=== PATIENT | female | born 1930 | race Caucasian/White ===

== ENCOUNTER → 2016-02-17 | Outpatient (CLI) | payer OTHER, BC ==
[~2016-02-17] MED LIST: ASPI81TA28 PO; CALC1TAB10 PO; DONE5TAB9 PO; MULT-190 PO; OXYB3.9D TD; WARF3TAB PO
[2016-02-17 12:21] LABS: INR 1.4 (0.9-1.1); PROTHROMBIN TIME (PATIENT) 15.4 SECONDS (9.0-12.0)
== END | disposition home or self-care (01) ==
LOC: C.LABPVFM 10:02
PROVIDERS: ATTEND Internal Medicine
DX: I26.99 Other pulmonary embolism without acute cor pulmonale (principal)

== ENCOUNTER → 2016-04-06 | Outpatient (CLI) | payer OTHER, BC ==
[2016-04-06 10:55] LABS: INR 2.2 (0.9-1.1); PROTHROMBIN TIME (PATIENT) 24.4 SECONDS (9.0-12.0)
--- NOTE | 2016-04-07 17:33 | CODING QUERY NO DIAGNOSIS ---
Valid Physician Order Needed A valid physician order must be submitted in order to properly bill for the service(s) provided, including date of service(s), valid diagnosis, and physician signature. If these tests are done on a recurring basis the original physican order must be submitted in order to code and bill for the service(s) provided. Please fax us the original, signed physician order so that we may expedite billing to [phone] DOS 04/06/16 * PT/INR ORDERED BY DR. COSTELLO Thank you Maya [facility] Information Management
--- NOTE | 2016-05-08 07:08 | CODING QUERY NO DIAGNOSIS ---
TREATMENT RENDERED WITHOUT A DIAGNOSIS To promote full compliance with coding requirements relating to patient care, physician participation is requested in all cases of yardmaster uncertainty. Please assist us with providing a diagnosis/symptom for the test(s) below: A diagnosis/symptom was not documented on your Order. A valid diagnosis/symptom is required to bill all insurances. Please remember that we are unable to code a diagnosis of rule out, probable, possible, questionable, or suspected. Tests that require a diagnosis: DOS: 04/06/16 * PT/INR DIAGNOSIS: Provider Signature: Date: Thank you Maya [facility] Information Management Once completed, please kindly fax back to [phone] For questions please call [phone]
== END | disposition home or self-care (01) ==
LOC: C.LABSPEC 10:10
PROVIDERS: ATTEND Family Medicine
DX: I26.99 Other pulmonary embolism without acute cor pulmonale (principal)

== ENCOUNTER → 2016-04-27 | Outpatient (CLI) | payer OTHER, BC ==
[2016-04-27 19:13] LABS: INR 1.4 (0.9-1.1); PROTHROMBIN TIME (PATIENT) 15.3 SECONDS (9.0-12.0)
--- NOTE | 2016-04-29 09:11 | CODING QUERY NO DIAGNOSIS ---
Valid Physician Order Needed A valid physician order must be submitted in order to properly bill for the service(s) provided, including date of service(s), valid diagnosis, and physician signature. If these tests are done on a recurring basis the original physician order must be submitted in order to code and bill for the service(s) provided. Please fax us the original, signed physician order so that we may expedite billing to [phone] DOS 04/27/2016 * PROTHROMBIN TIME Thank you Miky [facility] Information Management
== END | disposition home or self-care (01) ==
LOC: C.LABSPEC 09:22
PROVIDERS: ATTEND Family Medicine
DX: Z00.00 Encounter for general adult medical examination without abnormal findings (principal)

== ENCOUNTER → 2016-05-11 | Outpatient (CLI) | payer OTHER, BC ==
[2016-05-11 17:29] LABS: INR 4.1 (0.9-1.1); PROTHROMBIN TIME (PATIENT) 46.3 SECONDS (9.0-12.0)
== END | disposition home or self-care (01) ==
LOC: C.LABSPEC 16:36
PROVIDERS: ATTEND Family Medicine
DX: I26.99 Other pulmonary embolism without acute cor pulmonale (principal)

== ENCOUNTER → 2016-05-18 | Outpatient (CLI) | payer OTHER, BC ==
[2016-05-18 10:33] LABS: INR 1.1 (0.9-1.1); PROTHROMBIN TIME (PATIENT) 12.2 SECONDS (9.0-12.0)
--- NOTE | 2016-05-19 15:37 | CODING QUERY NO DIAGNOSIS ---
Valid Physician Order Needed 32 A valid physician order must be submitted in order to properly bill for the service(s) provided, including date of service(s), valid diagnosis, and physician signature. If these tests are done on a recurring basis the original physician order must be submitted in order to code and bill for the service(s) provided. Please fax us the original, signed physician order so that we may expedite billing to [phone] DOS 05/18/16 * PROTHROMBIN TIME Thank you Emy [facility] Information Management
== END | disposition home or self-care (01) ==
LOC: C.LABSPEC 09:56
PROVIDERS: ATTEND Family Medicine
DX: I26.99 Other pulmonary embolism without acute cor pulmonale (principal)

== ENCOUNTER → 2016-06-08 | Outpatient (CLI) | payer OTHER, BC ==
[2016-06-08 11:46] LABS: PROTHROMBIN TIME (PATIENT) 46.2 SECONDS (9.0-12.0)
[2016-06-08 12:02] LABS: INR 4.1 (0.9-1.1)
== END | disposition home or self-care (01) ==
LOC: C.LABSPEC 10:54
PROVIDERS: ATTEND Family Medicine
DX: I26.99 Other pulmonary embolism without acute cor pulmonale (principal)

== ENCOUNTER → 2016-06-15 | Outpatient (CLI) | payer OTHER, BC ==
[2016-06-15 12:13] LABS: INR 2.5 (0.9-1.1)
== END | disposition home or self-care (01) ==
LOC: C.LABSPEC 11:24
PROVIDERS: ATTEND Family Medicine
DX: I26.99 Other pulmonary embolism without acute cor pulmonale (principal)

== ENCOUNTER → 2016-07-14 | Outpatient (CLI) | payer OTHER, BC ==
[2016-07-14 17:42] LABS: HEMATOCRIT 42.7 % (37-47); MEAN CELL VOLUME 88.8 fL (80-100); MEAN CORPUSCULAR HEMOGLOBIN 28.9 pg (25-34); MEAN CORPUSCULAR HGB CONC 32.6 g/dl (32-36); PLATELET COUNT 191 K/uL (130-400); RED BLOOD COUNT 4.81 M/uL (4.2-5.4); WHITE BLOOD COUNT 5.34 K/uL (4.8-10.8)
[2016-07-14 18:00] LABS: ALT/SGPT 19 U/L (12-78); AST/SGOT 16 U/L (15-37); BLOOD UREA NITROGEN 21 mg/dl (7-18); BUN/CREATININE RATIO 24.1 (10-20); CALCIUM 8.4 mg/dl (8.5-10.1); CARBON DIOXIDE 31 mmol/L (21-32); CHLORIDE 105 mmol/L (98-107); CREATININE 0.86 mg/dl (0.60-1.20); GLUCOSE 93 mg/dl (70-99); POTASSIUM 4.4 mmol/L (3.5-5.1); SODIUM 141 mmol/L (136-145)
[2016-07-14 18:11] LABS: ALKALINE PHOSPHATASE 67 U/L (45-117); THYROID STIMULATING HORMONE 0.312 uIu/ml (0.300-4.500)
== END | disposition home or self-care (01) ==
LOC: C.LABPVFM 12:12
PROVIDERS: ATTEND Family Medicine
DX: I82.409 Acute embolism and thrombosis of unspecified deep veins of unspecified lower extremity (principal); R53.83 Other fatigue; I26.99 Other pulmonary embolism without acute cor pulmonale

== ENCOUNTER 2016-08-30 20:02 | Emergency (ER) | payer OTHER, BC ==
[~2016-08-30] VITALS: Ht 162.6 cm; Wt 53.8 kg
[~2016-08-30 20:02] MED LIST changes: -ASPI81TA28 PO
[2016-08-30 20:17] VITALS: O2SAT 98
[2016-08-30 20:18] VITALS: TEMP 36.8; Ht 162.6 cm; Wt 53.8 kg
[2016-08-30 20:22] LABS: BASO % 0.2 %; BASO ABS # 0.01 K/uL (0-0.2); COMPLETE YES; EOS % 0.7 %; HEMATOCRIT 41.8 % (37-47); IG% 0.2 %; LYMPH % 21.5 %; LYMPH ABS # 1.31 K/uL (1.2-3.4); MEAN CELL VOLUME 88.6 fL (80-100); MEAN CORPUSCULAR HEMOGLOBIN 29.2 pg (25-34); MEAN PLATELET VOLUME 12.2 fL (7.4-10.4); MONO % 14.4 %; PLATELET COUNT 195 K/uL (130-400); RED BLOOD COUNT 4.72 M/uL (4.2-5.4); WHITE BLOOD COUNT 6.09 K/uL (4.8-10.8)
[2016-08-30 20:33] LABS: ISTAT CREATININE 1.2 mg/dl (0.6-1.3); ISTAT HEMOGLOBIN 13.6 g/dl (12.0-16.0); ISTAT IONIZED CALCIUM 1.15 mmol/l (1.12-1.32)
[2016-08-30] MEDS: NITROGLYCERIN 0.4 MG SL PER TAB CHARGE SL PRN ×2 (20:34→21:44)
[2016-08-30 20:35] LABS: INR 1.1 (0.9-1.1); PROTHROMBIN TIME (PATIENT) 11.4 SECONDS (9.0-12.0)
[2016-08-30 20:36] LABS: BLOOD UREA NITROGEN 26 mg/dl (7-18); BUN/CREATININE RATIO 19.9 (10-20); CALCIUM 9.1 mg/dl (8.5-10.1); CARBON DIOXIDE 29 mmol/L (21-32); CHLORIDE 105 mmol/L (98-107); GLUCOSE 136 mg/dl (70-99); POTASSIUM 3.6 mmol/L (3.5-5.1); SODIUM 142 mmol/L (136-145)
[2016-08-30 20:41] LABS: CKMB/CK RATIO 2.2 (0-3.0)
--- NOTE | 2016-08-30 21:09 | DIAGNOSTIC IMAGING REPORT ---
CHEST ONE VIEW PORTABLE CLINICAL HISTORY: Chest Pain dyspnea COMPARISON STUDY: 01/29/2016 FINDINGS: The bones soft tissues and hemidiaphragms are normal. The cardiomediastinal silhouette is normal. The lungs are clear. The pulmonary vasculature is normal. IMPRESSION: Negative chest. The above report was generated using voice recognition software. It may contain grammatical, syntax or spelling errors. Electronically signed by: Richy Seals M.D. 08/30/2016 9:08 PM Dictated Date/Time: 08/30/2016 9:07 PM
[2016-08-30] MEDS ORDERED: ASPI81TA28 PO (21:11)
[2016-08-30] MEDS ORDERED: OPTIRAY 320 IV PRN (21:15)
--- NOTE | 2016-08-30 21:21 | DIAGNOSTIC IMAGING REPORT ---
(CHEST FOR PE) ANGIO WITH CT DOSE: 229.96 mGy.cm HISTORY: Chest pain dyspnea TECHNIQUE: Multiaxial CT images of the chest were performed following the intravenous administration of contrast to evaluate the pulmonary arteries. Maximal intensity projection images were also obtained. COMPARISON STUDY: 11/21/2015 FINDINGS: Ectasia and distention of the thoracic aorta as well as central pulmonary vasculature persists. There is no evidence for main or central pulmonary embolus. Ectasia and dilatation of the a sending thoracic aorta is stable. Pulmonary blood previously described have essentially resolved. There is a single small residual filling defect and a small branch of the right lower lobe although this appears to represent chronic change at this time. Evaluation of lung parenchyma shows a small parenchymal infiltrate right base. There is minimal dependent atelectasis left base. IMPRESSION: 1. No evidence for acute pulmonary embolus. 2. Small parenchymal infiltrate right lung base. 3. Stable ectasia of the thoracic aorta as well as distention of the central pulmonary vasculature. The above report was generated using voice recognition software. It may contain grammatical, syntax or spelling errors. Electronically signed by: Richy Seals M.D. 08/30/2016 9:20 PM Dictated Date/Time: 08/30/2016 9:15 PM
--- NOTE | 2016-08-30 22:26 | DIAGNOSTIC IMAGING REPORT ---
ADDENDUM As per Dr. Shetty, the patient had intravenous contrast approximately 1 to 2 hours prior to the current scan. This potentially explains the bulk of the enhancement characteristics throughout cerebellar as well as cerebral hemispheric region. This is slightly atypical in the region of the tentorium and anterior interhemispheric fissure however. Although it is felt the bulk of findings are related to post contrast, it would be prudent to rescan the patient in approximately 24 hours to confirm resolution of the high density components on the original study IMPRESSION: Additional information indicates the patient had a dose of intravenous contrast prior to the current study. As a result, the bulk of the high density findings are most likely related to vascular enhancement. Its distribution, however is slightly atypical and a follow-up scan in 24 hours is suggested. Electronically signed by: Richy Seals M.D. 08/30/2016 10:57 PM Dictated Date/Time: 08/30/2016 10:54 PM ORIGINAL REPORT HEAD WITHOUT CONTRAST (CT) CT DOSE: 537.48 mGy.cm HISTORY: Mental status change confusion TECHNIQUE: Multiaxial CT images of the head were performed without the use of intravenous contrast. Comparison: 01/29/2016 Findings: The paranasal sinuses and mastoid air cells are clear. Interval increase in density of the arterial structures of the base of the brain including middle cerebral arterial structures. There is a subtle increase in density of the tentorium as well as interhemispheric fissure as compared to the prior study. This appearance suggests possibility of a subarachnoid hemorrhage. There is no mass effect. There is no midline shift. Impression: 1. Interval development of what appears to be a small subarachnoid hemorrhage involving the para tentorial region, basal cisterns, as well as interhemispheric region. 2. No midline shift. No parenchymal hemorrhage. The above report was generated using voice recognition software. It may contain grammatical, syntax or spelling errors. Electronically signed by: Richy Seals M.D. 08/30/2016 10:24 PM Dictated Date/Time: 08/30/2016 10:19 PM
[2016-08-30] MEDS ORDERED: NiCARDipine IV 25 MG in SODIUM CHLORIDE 0.9% 250ML 240 ML IV STA (22:36)
--- NOTE | 2016-08-30 23:29 | EMERGENCY ROOM VISIT NOTE ---
History Report prepared by Himanshu: Gaurav Rutherford Under the Supervision of: Dr. Brandon Alaniz M.D. First contact with patient: 20:06 Chief Complaint: CHEST PAIN Stated Complaint: CHEST PAIN, SYNCOPE History of Present Illness The patient is a 86 year old female who presents to the Emergency Room via ALS with complaints of persistent chest pain starting about an hour ago. The patient walked over to her kitchen when she had an onset of her pain. She describes it as sharp with pain radiation to the right jaw. She also reports some shortness of breath. She currently continues to complain of the pain. As per family, the patient was a little bit confused yesterday but she is back to her baseline today. She denies any new cough with the exception of a mild cough when she woke up this morning. The patient denies runny nose, sore throat, abdominal pain, nausea, vomiting, diarrhea, or any other complaints. She denies any history of myocardial infarction. She has a history of pulmonary embolisms. She was recently switched from Coumadin to Aspirin. Source of History: patient Onset: about an hour ago Position: chest Quality: sharp Timing: other (persistent) Associated Symptoms: + SOB, No sorethroat, No cough, No nausea, No vomiting , No abdominal pain, No diarrhea Review of Systems See HPI for pertinent positives & negatives. A total of 10 systems reviewed and were otherwise negative. Past Medical & Surgical Medical Problems: (1) Hypertension Nos (2) Pulmonary emboli Family History Cancer Social History Smoking Status: Never Smoker Alcohol Use: none Drug Use: none Marital Status: single Housing Status: lives alone Occupation Status: employed Current/Historical Medications Scheduled Aspirin (Aspirin Ec), 81 MG PO DAILY Calcium Carbonate-Cholecalcife (Calcium 1000 + D), 1 TAB PO DAILY Donepezil HCl (Aricept), 1 TAB PO HS Ocuvite Preservision (Ocuvite Preservision), 1 TAB PO DAILY Allergies Coded Allergies: No Known Allergies (Verified , 12/16/15) Physical Exam Vital Signs Date Time Temp Pulse Resp B/P (MAP) Pulse Ox O2 Delivery O2 Flow Rate FiO2 08/31/16 00:02 108 20 138/66 98 Room Air 08/30/16 23:24 88 20 156/62 98 Room Air 08/30/16 23:06 90 18 140/63 98 Room Air 08/30/16 22:57 84 20 157/73 98 Room Air 08/30/16 22:40 79 23 160/80 100 Room Air 08/30/16 21:42 87 20 149/73 98 Room Air 08/30/16 20:18 80 08/30/16 20:18 36.8 83 20 166/81 98 Room Air 08/30/16 20:18 98 Room Air 08/30/16 20:17 98 Room Air Physical Exam GENERAL: Disheveled, sitting up in bed, chronically ill appearing. EYE EXAM: normal conjunctiva OROPHARYNX: no exudate, no erythema, lips, buccal mucosa, and tongue normal and mucous membranes are moist NECK: supple, no nuchal rigidity, no adenopathy, non-tender LUNGS: Clear to auscultation. Normal chest wall mechanics HEART: no murmurs, S1 normal and S2 normal ABDOMEN: abdomen soft, non-tender, normo-active bowel sounds, no masses, no rebound or guarding. BACK: Back is symmetrical on inspection and there is no deformity, no midline tenderness, no CVA tenderness. SKIN: no rashes and no bruising UPPER EXTREMITIES: upper extremities are grossly normal. LOWER EXTREMITIES: No pitting edema. Calves are equal bilaterally. NEURO EXAM: Normal sensorium, cranial nerves II-XII intact, normal speech, no weakness of arms, no weakness of legs. No drift. Finger to nose intact. Medical Decision & Procedures ER Provider Diagnostic Interpretation: Xray and CT results as stated below per my review and the radiologist's interpretation: CHEST ONE VIEW PORTABLE CLINICAL HISTORY: Chest Pain dyspnea COMPARISON STUDY: 01/29/2016 FINDINGS: The bones soft tissues and hemidiaphragms are normal. The cardiomediastinal silhouette is normal. The lungs are clear. The pulmonary vasculature is normal. IMPRESSION: Negative chest. The above report was generated using voice recognition software. It may contain grammatical, syntax or spelling errors. Electronically signed by: Richy Seals M.D. 08/30/2016 9:08 PM Dictated Date/Time: 08/30/2016 9:07 PM (CHEST FOR PE) ANGIO WITH CT DOSE: 229.96 mGy.cm HISTORY: Chest pain dyspnea TECHNIQUE: Multiaxial CT images of the chest were performed following the intravenous administration of contrast to evaluate the pulmonary arteries. Maximal intensity projection images were also obtained. COMPARISON STUDY: 11/21/2015 FINDINGS: Ectasia and distention of the thoracic aorta as well as central pulmonary vasculature persists. There is no evidence for main or central pulmonary embolus. Ectasia and dilatation of the a sending thoracic aorta is stable. Pulmonary blood previously described have essentially resolved. There is a single small residual filling defect and a small branch of the right lower lobe although this appears to represent chronic change at this time. Evaluation of lung parenchyma shows a small parenchymal infiltrate right base. There is minimal dependent atelectasis left base. IMPRESSION: 1. No evidence for acute pulmonary embolus. 2. Small parenchymal infiltrate right lung base. 3. Stable ectasia of the thoracic aorta as well as distention of the central pulmonary vasculature. The above report was generated using voice recognition software. It may contain grammatical, syntax or spelling errors. Electronically signed by: Richy Seals M.D. 08/30/2016 9:20 PM Dictated Date/Time: 08/30/2016 9:15 PM HEAD WITHOUT CONTRAST (CT) CT DOSE: 537.48 mGy.cm HISTORY: Mental status change confusion TECHNIQUE: Multiaxial CT images of the head were performed without the use of intravenous contrast. Comparison: 01/29/2016 Findings: The paranasal sinuses and mastoid air cells are clear. Interval increase in density of the arterial structures of the base of the brain including middle cerebral arterial structures. There is a subtle increase in density of the tentorium as well as interhemispheric fissure as compared to the prior study. This appearance suggests possibility of a subarachnoid hemorrhage. There is no mass effect. There is no midline shift. Impression: 1. Interval development of what appears to be a small subarachnoid hemorrhage involving the para tentorial region, basal cisterns, as well as interhemispheric region. 2. No midline shift. No parenchymal hemorrhage. The above report was generated using voice recognition software. It may contain grammatical, syntax or spelling errors. Electronically signed by: Richy Seals M.D. 08/30/2016 10:24 PM Dictated Date/Time: 08/30/2016 10:19 PM Laboratory Results 08/30/16 20:10 Red Blood Count 4.72, Mean Corpuscular Volume 88.6, Mean Corpuscular Hemoglobin 29.2, Mean Corpuscular Hemoglobin Concent 33.0, Mean Platelet Volume 12.2, Neutrophils (%) (Auto) 63.0, Lymphocytes (%) (Auto) 21.5, Monocytes (%) (Auto) 14.4, Eosinophils (%) (Auto) 0.7, Basophils (%) (Auto) 0.2, Neutrophils # (Auto ) 3.84, Lymphocytes # (Auto) 1.31, Monocytes # (Auto) 0.88, Eosinophils # (Auto ) 0.04, Basophils # (Auto) 0.01 08/30/16 20:10 Test 08/30/16 20:10 08/30/16 20:20 White Blood Count 6.09 K/uL (4.8-10.8) Red Blood Count 4.72 M/uL (4.2-5.4) Hemoglobin 13.8 g/dL (12.0-16.0) Hematocrit 41.8 % (37-47) Mean Corpuscular Volume 88.6 fL (80-100) Mean Corpuscular Hemoglobin 29.2 pg (25-34) Mean Corpuscular Hemoglobin Concent 33.0 g/dl (32-36) Platelet Count 195 K/uL (130-400) Mean Platelet Volume 12.2 fL (7.4-10.4) Neutrophils (%) (Auto) 63.0 % Lymphocytes (%) (Auto) 21.5 % Monocytes (%) (Auto) 14.4 % Eosinophils (%) (Auto) 0.7 % Basophils (%) (Auto) 0.2 % Neutrophils # (Auto) 3.84 K/uL (1.4-6.5) Lymphocytes # (Auto) 1.31 K/uL (1.2-3.4) Monocytes # (Auto) 0.88 K/uL (0.11-0.59) Eosinophils # (Auto) 0.04 K/uL (0-0.5) Basophils # (Auto) 0.01 K/uL (0-0.2) RDW Standard Deviation 46.2 fL (36.4-46.3) RDW Coefficient of Variation 14.1 % (11.5-14.5) Immature Granulocyte % (Auto) 0.2 % Immature Granulocyte # (Auto) 0.01 K/uL (0.00-0.02) Prothrombin Time 11.4 SECONDS (9.0-12.0) Prothromb Time International Ratio 1.1 (0.9-1.1) Est Creatinine Clear Calc Drug Dose 27.4 ml/min Estimated GFR () 43.6 Estimated GFR (Non- 37.6 BUN/Creatinine Ratio 19.9 (10-20) Calcium Level 9.1 mg/dl (8.5-10.1) Total Creatine Kinase 104 U/L (26-192) Creatine Kinase MB 2.3 ng/ml (0.5-3.6) Creatine Kinase MB Ratio 2.2 (0-3.0) Troponin I < 0.015 ng/ml (0-0.045) Bedside Hemoglobin 13.6 g/dl (12.0-16.0) Bedside Hematocrit 40 % (37-47) Bedside Sodium 141 mEq/L (135-144) Bedside Potassium 3.6 mEq/L (3.3-5.0) Bedside Chloride 101 mEq/L (101-112) Bedside Total CO2 29 mEq/l (24-31) Anion Gap 16.0 mmol/L (16-25) Bedside Blood Urea Nitrogen 26 mg/dl (7-18) Bedside Creatinine 1.2 mg/dl (0.6-1.3) Bedside Glucose (other) 140 mg/dl (70-99) Bedside Ionized Calcium (Miguel) 1.15 mmol/l (1.12-1.32) Laboratory results per my review. Medications Administered Medications (Trade) Dose Ordered Sig/Kera Route Start Time Stop Time Status Last Admin Dose Admin Nitroglycerin (Nitrostat Tab) 0.4 mg Q5M PRN SL 08/30/16 20:30 09/29/16 20:29 08/30/16 21:44 0.4 MG Nicardipine HCl 25 mg/Sodium Chloride 250 ml @ 0 mls/hr Q0M STAT IV 08/30/16 22:36 08/30/16 22:52 DC 08/30/16 22:52 50 MLS/HR ECG Indication: chest pain Rate (beats per minute): 86 Rhythm: sinus rhythm Findings: nonspecific-ST abn (inferior and lateral), PAC, other (normal axis; T -wave flattening in inferior and lateral leads) Comparison ECG Date: January 29, 2016 Change: T wave flattening in inferior and lateral leads is new when compared to January 29, 2016. ED Course ED COURSE: Vital signs were reviewed and showed hypertensive The patients medical record was reviewed The above diagnostic studies were performed and reviewed. ED treatments and interventions as stated above. 2005: The patient was evaluated in room A12B. A complete history and physical examination was performed. 2029: Nitroglycerin 0.4 mg SL 2057: I reevaluated the patient who is resting comfortably. 2129: Upon reevaluation, the patient is feeling better. Her jaw pain and shortness of breath has resolved. Her chest pain is down to 1/10 after receiving 1 nitro. I discussed my findings with the patient and her family. They understand and agree with the treatment plan. Based on the patients age, coexisting illnesses, exam and lab findings the decision to treat as an inpatient was made. The patient remained stable while under my care. The patient will be evaluated for further management. 4: I discussed the patient's case with Dr. Jacky Mcdermott[facility] 2236: Nicardipine HCl 25 mg/Sodium Chloride 250 ml @ 0 mls/hr Protocol IV 2244: The patient admits to a slight headache occurring earlier today and one last night. 2225: I updated the patient and her family on the CT head findings. They are agreeable with the treatment plan. 2248: I discussed the patient's case with Dr. Sierra, director investor relations with [facility]. Medical Decision Medication Reconciliation: I attest that I have personally reviewed the patient' s current medication list. Differential diagnoses includes but is not limited to acute coronary syndrome, myocardial infarction, pericarditis, pulmonary embolus, aortic dissection, pneumonia, pneumothorax, musculoskeletal, shingles, esophageal. Patient is an 86-year-old female who presents the ER for chest pain associated with shortness of breath and a near syncopal episode. She notes that this occurred earlier tonight. She's been very active today redoing her house. EKG was obtained and shows nonspecific T-wave changes. She was given aspirin prior to arrival. She was also given nitroglycerin with resolution of her chest pain. With her recent history of PEs and her stopping anticoagulation a CT PE was performed. This showed old clot. She does have a slight right lower lobe consolidation. She denies any cough, shortness of breath or runny nose. Upon arrival family notes that she has been confused yesterday and again intermittently today. She admits that she had a mild headache yesterday and once today as well. She is completely neurologically intact currently. CT head was performed. Received an emergent call from the radiologist noting that she has a subarachnoid bleed. I did update the family and Pt in regards to this. She is a DNR/DNI. They preferred to be transferred to [facility] [address]. I reviewed the images and rediscussed case with my radiologist as she recently had a CT PE study with IV contrast and I questioned if this was the true cause of the CT findings. He believes that this would only explained about 80% of the findings. He notes the findings of the tentorium suggest a subarachnoid hemorrhage. Based on this patient was placed on a Cardene drip. We have no neurosurgical backup. Contacted [facility] [address] ICU and they accepted the patient in transfer. They preferred to fly the patient due to the distance. Pt and family were updated at bedside. Consults Time Called: 2137 Consulting Physician: Dr. Jacky Mcdermott, resident with [facility] Returned Call: [phone] I discussed the patient's case with Dr. Jacky Mcdermott, resident with [facility]. Additional Consults: Time Called: 2239 Consulted Physician: Dr. Sierra, director investor relations with [facility] Returned Call: [phone] Additional Comments: I discussed the patient's case with Dr. Sierra, director investor relations with [facility]. Impression Primary Impression: Subarachnoid bleed Additional Impression: Chest pain Critical Care I have personally spent greater than 80 minutes of critical care time in the direct management of this patient. This includes bedside care, interpretation of diagnostic studies, and testing, discussion with consultants, patient, and family members, and other required patient management activities. This 80 minutes is in excess of all separately billable procedures. Scribe Attestation The scribe's documentation has been prepared under my direction and personally reviewed by me in its entirety. I confirm that the note above accurately reflects all work, treatment, procedures, and medical decision making performed by me. Departure Information Dispostion Transfer Acute Care Facility Referrals Howard Luciano M.D. (PCP) Patient Instructions [facility] Problem Qualifiers Additional Impression: Chest pain Chest pain type: unspecified Qualified Codes: R07.9 - Chest pain, unspecified
[2016-08-31 00:02] VITALS: BP 138/66; PULSE 108; O2SAT 98
== END 2016-08-31 00:11 | disposition short-term general hospital (02) ==
LOC: EDBD 20:02 → C.EDA 20:05
DX: I60.9 Nontraumatic subarachnoid hemorrhage, unspecified (principal); R07.9 Chest pain, unspecified; I10 Essential (primary) hypertension; Z86.711 Personal history of pulmonary embolism; Z79.82 Long term (current) use of aspirin; Z79.899 Other long term (current) drug therapy; Z80.9 Family history of malignant neoplasm, unspecified